=== PATIENT | female | born 1995 | race Hispanic/Latino ===

== ENCOUNTER 2021-08-16 18:37 | Emergency (ER) | payer SELFPAY ==
[~2021-08-16] VITALS: Ht 162.6 cm; Wt 71.2 kg
[~2021-08-16 18:37] MED LIST: IBUPROFEN600 MG PO; PRENATA4 PO
[2021-08-16 19:31] LABS: URINE BILIRUBIN - DIPSTICK NEGATIVE (NEGATIVE); URINE BLOOD DIPSTICK TRACE-INTACT (NEGATIVE); URINE COLOR YELLOW; URINE GLUCOSE - DIPSTICK NEGATIVE (NEGATIVE); URINE KETONE NEGATIVE (NEGATIVE); URINE LEUK ESTERASE NEGATIVE (NEGATIVE); URINE PH 6.5 (4.5-8.0); URINE PROTEIN - DIPSTICK NEGATIVE (NEG-TRACE); URINE SPECIFIC GRAVITY 1.015; URINE UROBILINOGEN - DIPSTICK 0.2 E.U./dL (0.2)
[2021-08-16 19:32] LABS: URINE NITRITE - DIPSTICK NEGATIVE (Negative)
[2021-08-16] MEDS ORDERED: VOLTAREN75 MG PO (20:21)
[2021-08-16 20:40] VITALS: BP 114/53
== END 2021-08-16 20:40 | disposition home or self-care (01) | DRG 552 ==
LOC: ED 18:37
PROVIDERS: Physician Assistant Surgical
DX: M54.50 Low back pain, unspecified (principal)

== ENCOUNTER 2023-06-04 01:52 | Emergency (ER) | payer SELFPAY ==
[~2023-06-04] VITALS: Ht 167.6 cm; Wt 72.0 kg
[~2023-06-04 01:52] MED LIST changes: +VOLTAREN75 MG PO
[2023-06-04] MEDS ORDERED: LITHIUM CARB300 MG PO (02:48)
[2023-06-04] MEDS ORDERED: [UNRECOGNIZED DRUG - REMARK] (02:49)
[2023-06-04 03:27] LABS: URINE BLOOD DIPSTICK Negative (NEGATIVE); URINE GLUCOSE - DIPSTICK Negative (NEGATIVE); URINE KETONE Negative (NEGATIVE); URINE LEUK ESTERASE Negative (NEGATIVE); URINE NITRITE - DIPSTICK Negative (Negative); URINE PROTEIN - DIPSTICK 30 mg/dL (NEG-TRACE); URINE SPECIFIC GRAVITY 1.025
[2023-06-04 03:32] LABS: URINE COLOR Yellow
[2023-06-04 03:35] LABS: URINE EPITHELIAL CELLS FEW EPI/hpf (0-FEW)
[2023-06-04 03:36] LABS: URINE BACTERIA FEW hpf; URINE MUCUS MANY hpf (NONE-FEW); URINE YEAST RARE hpf
[2023-06-04] MEDS ORDERED: IBUPROFEN600 MG PO (04:58)
[2023-06-04 05:18] VITALS: BP 114/75
== END 2023-06-04 05:37 | disposition home or self-care (01) | DRG 552 ==
LOC: ED 01:52
PROVIDERS: Emergency Medicine
DX: M54.50 Low back pain, unspecified (principal); S30.0XXA Contusion of lower back and pelvis, initial encounter; F32.A Depression, unspecified; F41.9 Anxiety disorder, unspecified; F20.9 Schizophrenia, unspecified; X58.XXXA Exposure to other specified factors, initial encounter